=== PATIENT | male | born 1960 | race Caucasian/White ===

== ENCOUNTER 2022-12-18 09:18 | Inpatient (IN) ==
--- NOTE | 2022-12-05 14:13 | PAT Medication Instructions ---
Medication Instructions Date of Service December 05, 2022 Home Medications Medication Instructions Recorded cephalexin 500 mg capsule 500 mg PO BID 7 days #14 caps 10/02/22 amlodipine 10 mg tablet 10 mg PO QAM bupropion HCl 300 mg 24 hr tablet, extended release 300 mg PO QAM buspirone 10 mg tablet 10 mg PO QAM escitalopram oxalate 20 mg tablet 20 mg PO QAM lisinopril 20 mg tablet 20 mg PO QAM trazodone 100 mg tablet 100 mg PO HS cephalexin 500 mg capsule 500 mg PO BID aspirin 81 mg tablet,delayed release 81 mg PO QAM clopidogrel 75 mg tablet 75 mg PO QAM rosuvastatin 20 mg tablet 20 mg PO QAM Continue as directed cephalexin 500 mg capsule 500 mg PO BID ASK your prescriber and surgeon aspirin 81 mg tablet,delayed release 81 mg PO QAM clopidogrel 75 mg tablet 75 mg PO QAM DO NOT take the morning of surgery lisinopril 20 mg tablet 20 mg PO QAM Take morning of surgery With a small sip of water, OTHERWISE NOTHING TO EAT OR DRINK AFTER MIDNIGHT: amlodipine 10 mg tablet 10 mg PO QAM bupropion HCl 300 mg 24 hr tablet, extended release 300 mg PO QAM buspirone 10 mg tablet 10 mg PO QAM escitalopram oxalate 20 mg tablet 20 mg PO QAM rosuvastatin 20 mg tablet 20 mg PO QAM Take evening before surgery trazodone 100 mg tablet 100 mg PO HS Other Notes If you have any questions please call us at [phone] or [phone] or or [phone]
--- NOTE | 2022-12-09 08:24 | Anesthesiology Consultation ---
Date of Service December 09, 2022 Assessment & Plan (1) Encounter for pre-operative examination: Chart Review Chart Review: Acceptable Risk for Surgery and Patient seen in Pre Admission Testing Per PAT appt on 12/09/22, patient denies any recent travel or large group activities. Pt is NOT vaccinated for Covid. Will leave to surgeon's discretion if preop Covid testing needed. Educated on importance of using Covid precautions one week prior to surgery Teaching & Discussion Pre-Anesthesia Teaching/Discussion Notes: Instructed NPO after midnight before surgery,except medications with 15 cc of water. Medication instructions provided according to the PAT guidelines. History Surgery Operation Date: 12/18/22 12:30 Proposed Procedures p Right Transcarotid Artery Revascularization - Rio Alvarez MD Height/Weight Height: 5 ft 7 in Weight: 76.6 kg Allergies Allergy/AdvReac Type Severity Reaction Status Date / Time No Known Allergies Allergy Verified 12/05/22 09:36 Medications Home Medications Medication Instructions Recorded Confirmed Last Taken amlodipine 10 mg tablet 10 mg PO QA 12/23/21 12/05/22 Unknown bupropion HCl 300 mg 24 hr tablet, [address] [facility] 12/23/21 12/05/22 Unknown extended release buspirone 10 mg tablet [address] [facility] 12/23/21 12/05/22 Unknown escitalopram oxalate 20 mg tablet [address] [facility] 12/23/21 12/05/22 Unknown lisinopril 20 mg tablet 20 mg PO QA 12/23/21 12/05/22 Unknown trazodone 100 mg tablet 100 mg PO HS 12/23/21 12/05/22 Unknown cephalexin 500 mg capsule 500 mg PO BID 7 days #14 caps 10/02/22 12/05/22 Unknown aspirin 81 mg tablet,delayed 81 mg PO QA 12/05/22 12/05/22 Unknown release clopidogrel 75 mg tablet 75 mg PO QA 12/05/22 12/05/22 Unknown rosuvastatin 20 mg tablet 20 mg PO QA 12/05/22 12/05/22 Unknown Past Medical History Medical History Alcohol use approximately 5-7 beers per week Carotid artery stenosis High-grade stenosis of greater than 80% involving proximal right internal carotid artery; no significant stenosis or occlusion of left internal carotid artery Chronic back pain Depression Hypertension Insomnia Smokeless tobacco use 1 can per day, started around age 12 Exercise / Class Metabolic Activity II 4-5 Yardwork/Stairs/Walk up hill (one flight of stairs - no chest pain or SOB ) Past Surgical History Surgical History History of back surgery lumbar History of colonoscopy History of tooth extraction S/P appendectomy S/P hernia repair S/P sinus surgery Past Anesthesia History No Hx of Anesthesia Complications and No Family Hx of Anesthesia Complications History of PONV No Hx of PONV and No Hx of Motion Sickness Social History Smoking Status: Never smoker tobacco type: smokeless tobacco Do You Dip or Chew Tobacco: Yes (1 can/day advised npo status) Hx Alcohol Use: Yes Alcohol type: beer alcohol intake frequency: a few times a week Hx Substance Use: No substance use type: does not use Review of Systems Rare reflux - no medication needed Patient denies chest pain, shortness of breath, dyspnea on exertion, cough, wheezing, palpitations. No hx of seizures, stroke, PA, apnea/snoring. No hx of blood clots or blood transfusions Physical Exam Vital Signs VITALS BP 136/82 P 72 TEMP 98.0 SP02 96% RESP 16 Constitutional no acute distress ENMT Mouth: no TMJ clicking Thyromental Distance: < 3.5 Finger Breadths (3.0) Mallampati Class: III Missing teeth Neck + limited neck extension (mild) Respiratory normal respiratory effort; no respiratory distress Auscultation: lungs clear to auscultation bilaterally; no wheezes Cardiovascular Rate/Rhythm: regular rate and regular rhythm Heart Sounds: no murmur Vessels: no carotid bruit Musculoskeletal Spine: no pain with cervical ROM Extremities: extremities normal to inspection Psychiatric Orientation: alert Lab Results Anesthesia Preop Results Results Anesthesia Widget: WBC 7.93 K/ul (4.8-10.8) 12/09/22 Hgb 15.5 g/dl (14.0-18.0) 12/09/22 Hct 43.5 % (40.1-51.0) 12/09/22 Plt 198 K/uL (130-400) 12/09/22 Na 138 mmol/L (136-145) 12/09/22 K 4.1 mmol/L (3.5-5.1) 12/09/22 Cl 105 mmol/L (98-107) 12/09/22 CO2 27 mmol/L (21-32) 12/09/22 BUN 14 mg/dl (6-23) 12/09/22 Creat 1.13 mg/dl (0.6-1.4) 12/09/22 Glucose Level 88 mg/dl (70-99(Fasting)) 12/09/22 PT 10.9 Seconds (9.0-12.0) 12/09/22 PTT 25.0 Seconds (21.0-31.0) 12/09/22 INR 1.0 (0.9-1.1) 12/09/22 Blood Type B Positive 12/09/22 Antibody Screen NEGATIVE 12/09/22 Testing Electrocardiogram Date: 12/09/22 SR with 1st degree AVB at 64bpm Poor R wave progression, consider anterior PA vs lead placement vs LVH (Discussed with Dr. Bermudez. Pt with good functional status, no cardiac symptoms, due to nature of procedure- patient can proceed as scheduled) Chest X-Ray Date: 12/09/22 Findings: + NAD Other Testing Neck CTA 11/17/22= High-grade stenosis of greater than 80% involving the proximal 1 cm of the right internal carotid artery. No significant stenosis or occlusion within the right common carotid artery or left internal carotid artery. Mild stenosis at the takeoff of the left common carotid artery due to the atherosclerotic plaque. COVID-19 Risk Screen Screening Information COVID-19 Screen Date: 12/09/22 Exposure 21 Days Family/Household +COVID Last 21 Days: No Exposure 10 Days Any COVID Exposure Last 10 Days: No Symptoms Last 10 Days Experienced COVID Sx Last 10 Days: No + COVID 0-90 Days COVID + in Last 0-90 Days: No Risk Plan COVID Risk Plan: No Risk Identified Patient Education COVID Preop Screening Education Complete: Yes
--- NOTE | 2022-12-18 08:24 | History & Physical Report ---
Date of Service December 18, 2022 History of Present Illness Primary Care Provider: DIEGO Hugo Name: STEVE ESTRADA Patient Number: [id number] : 1960 Date of Service: 12/04/2022 Chief Complaint: _Follow-up after CTA HPI: _Mr. Estrada is a middle-aged male presents to Dr. Alvarez's vascular surgery clinic today for a follow-up appointment regarding his recent neck CTA and carotid stenosis. He continues to deny any symptoms of cerebrovascular insufficiency, including amaurosis, extremity weakness numbness or tingling, facial droop, sudden onset confusion, other complaints. His neck CTA does confirm about 90% stenosis of his right ICA at the origin. Current Home Meds: (Last Updated 12/04 09:51) amLODIPine (amLODIPine 10 mg oral tablet) 10 mg PO Daily aspirin (aspirin 81 mg oral delayed release tablet) 81 mg PO Daily buPROPion (buPROPion 300 mg/24 hours (XL) oral tablet, extended release) 300 mg PO Daily busPIRone (busPIRone 10 mg oral tablet) 10 mg PO bid celecoxib (celecoxib 100 mg oral capsule) 100 mg PO Daily clopidogrel (Plavix 75 mg oral tablet) 75 mg PO Daily escitalopram (escitalopram 20 mg oral tablet) 20 mg PO Daily lisinopril (lisinopril 20 mg oral tablet) 20 mg PO Daily rosuvastatin (rosuvastatin 20 mg oral tablet) 20 mg PO Daily traZODone (traZODone 100 mg oral tablet) 2 tabs po daily Allergies and Sensitivities: NKA Past Medical History: Problems: Tobacco user Carotid artery stenosis OBJECTIVE Vitals: Last Updated 12/04/22 09:15 Date Temp BP Location Pulse RR SpO2 Pain 12/04/22 136/86 Left Arm 75 98 0 11/03/22 142/84 Left Arm 72 98 Vital Signs are the last 3 documented. No Orthostatic Data Available No Height/Weight Data Available Physical Exam Constitutional: In general patient is a healthy-appearing well-nourished well- developed middle-aged male in no distress. Is alert and oriented without any deficits. His neck does demonstrate a right bruit. His heart is regular, his lungs are clear. His abdomen is soft nontender with normoactive bowel sounds. Brachial radial pulses are +3. Lower extremity exam was deferred by patient. ASSESSMENT: _ PLAN: _ 1 ) _carotid stenosis Patient has severe right ICA stenosis and is currently at risk of having a cerebrovascular event. This was discussed with the patient. Surgical options were then discussed at length, including carotid endarterectomy versus transcarotid artery revascularization. Patient elects to proceed with the TCAR of the right carotid artery. The procedure, risks, benefits and alternatives were discussed at length with the patient by myself at Dr. Alvarez's request. Patient expresses understanding and agreement to proceed. He was in the office with a family member today. All of their questions were answered to their satisfaction. He is not currently taking aspirin or Plavix, so these will be sent to the pharmacy for him. We will also have the patient undergo an echocardiogram prior to his procedure. Patient is agreeable to this plan. Thank you for letting us participate in the care of this patient. Signature Line Electronic Signature on File CC: DIEGO Craig [address],[facility] [address] [place] [address] * Electronically Reviewed/Signed by: Deja Armas PA-C Author Signature Dt/Tm:12/04/2022 09:58 AM [facility] [address] [address] Electronically Reviewed/Signed by: MD Kym Aguiarignkailey Signature Dt/Tm: 12/04/2022 11:41 AM [employer] And Sustainability Manager [place] [id number] LM Result Type: HVI Outpt Note Date of Service: December 04, 2022 09:53 EST Authorization Status: Final Author or Import Date: LAURA Armas Lynn on December 04, 2022 09:58 EST Verified By: MD Alvarez Eugene J on December 04, 2022 11:41 EST Encounter info: [id number], [facility] [place], Clinic, 12/04/2022 - 12/04/2022 Allergies Allergy/AdvReac Type Severity Reaction Status Date / Time No Known Allergies Allergy Verified 12/05/22 09:36 Home Medications Medication Instructions Recorded Confirmed Type amlodipine 10 mg tablet 10 mg PO QAM 12/23/21 12/05/22 History bupropion HCl 300 mg 24 hr tablet, 300 mg PO QAM 12/23/21 12/05/22 History extended release buspirone 10 mg tablet 10 mg PO QAM 12/23/21 12/05/22 History escitalopram oxalate 20 mg tablet 20 mg PO QAM 12/23/21 12/05/22 History lisinopril 20 mg tablet 20 mg PO QAM 12/23/21 12/05/22 History trazodone 100 mg tablet 100 mg PO HS 12/23/21 12/05/22 History cephalexin 500 mg capsule 500 mg PO BID 7 days #14 caps 10/02/22 12/05/22 Rx aspirin 81 mg tablet,delayed 81 mg PO QA 12/05/22 12/05/22 History release clopidogrel 75 mg tablet 75 mg PO QA 12/05/22 12/05/22 History rosuvastatin 20 mg tablet 20 mg PO QA 12/05/22 12/05/22 History Past Med/Surg History Medical History Alcohol use approximately 5-7 beers per week Carotid artery stenosis High-grade stenosis of greater than 80% involving proximal right internal carotid artery; no significant stenosis or occlusion of left internal carotid artery Chronic back pain Depression Hypertension Insomnia Smokeless tobacco use 1 can per day, started around age 12 Surgical History History of back surgery lumbar History of colonoscopy History of tooth extraction S/P appendectomy S/P hernia repair S/P sinus surgery Social History Smoking Status: Never smoker Second Hand Exposure: No; Hx Alcohol Use: Yes Alcohol type: beer Alcohol Intake Frequency: 2-3 x/Week Hx Substance Use: No Preferred Language: Ghanaian Communication Ability: Effective Hearing Ability: Normal Stamp Redemption Clerk Required: No Beliefs That Will Affect Care: None marital status: Single Current Living Situation: Alone Current Living Situation Comment: Dog current occupational status: unemployed Feels Safe at Home: Yes Dental Care, Regularly: Yes Assistive Devices: Glasses
[~2022-12-18 09:18] MED LIST: SODIUM CHLORIDE 0.9% 1000ML 1,000 ML IV SCH; ceFAZolin 2000MG 2,000 MG/15 ML SYR IV SCH
[2022-12-18] MEDS ORDERED: MIDAZOLAM HCL 1 MG/ML 2ML VIAL ONE (09:26)
[2022-12-18] MEDS ORDERED: fentaNYL citrate 100 MCG/2 ML VIAL ONE ×2 (09:27→12:31)
[2022-12-18 10:37] LABS: BUN Creatinine Ratio 10.1 (10-20); Calcium 9.6 mg/dl (8.5-10.1); Creatinine Clr Calc Pharmacy 65.7 ml/min; Est GFR (African American) 83.9 ml/min; Est GFR (Non-African American) 72.4 ml/min
[2022-12-18] MEDS ORDERED: fentaNYL citrate 100 MCG/2 ML VIAL IV PRN (11:14)
[2022-12-18] MEDS ORDERED: PROMETHAZINE HCL 6.25 MG in SODIUM CHLORIDE 0.9% 50 ML IV PRN (11:14)
[2022-12-18] MEDS ORDERED: LABETALOL HCL IV 5 MG/ML 20ML IV PRN ×2 (11:14→17:42)
[2022-12-18] MEDS ORDERED: ATROPINE SULFATE 0.1 MG/ML 10ML SYR IV PRN (11:14)
[2022-12-18] MEDS ORDERED: ONDANSETRON INJ 2 MG/ML 2 ML VIAL IV PRN ×2 (11:14→16:46)
[2022-12-18] MEDS ORDERED: KETOROLAC 30 MG/ML VIAL IV PRN (11:14)
[2022-12-18] MEDS ORDERED: ONDANSETRON INJ 2 MG/ML 2 ML VIAL ONE (11:43)
[2022-12-18] MEDS ORDERED: LIDOCAINE 2% MPF LOCAL 5 ML VIAL INFIL ONE (11:43)
[2022-12-18] MEDS ORDERED: HEPARIN SOD (PORCINE) 1000 UNIT/ML ONE (11:43)
[2022-12-18] MEDS ORDERED: PHENYLEPHRINE HCL 10 MG/ML VIAL ONE (11:43)
[2022-12-18] MEDS ORDERED: ROCURONIUM BROMIDE 10 MG/ML 5 ML VIAL IV ONE (11:43)
[2022-12-18] MEDS ORDERED: PROPOFOL IV EMULSION 10 MG/ML 20 ML VIAL IV ONE (11:43)
[2022-12-18] MEDS ORDERED: DEXAMETHASONE SOD INJ 4 MG/ML VIAL ONE (11:43)
--- NOTE | 2022-12-18 11:47 | History & Physical Bridge Note ---
Date of Service December 18, 2022 History & Physical Bridge Note I have examined the patient, reviewed the History & Physical and in the interval since the performance of the History & Physical I have noted the following changes of clinical significance: no changes noted
[2022-12-18] MEDS ORDERED: THROMBIN FOR SOLN 20000 UNIT KIT ONE (11:49)
[2022-12-18] MEDS ORDERED: GELATIN SPONGE SZ 100 ONE (11:49)
[2022-12-18] MEDS ORDERED: NITROGLYCERIN 5 MG/ML 10 ML VIAL ONE (12:43)
[2022-12-18] MEDS ORDERED: VISIPAQUE IV ONE (12:53)
[2022-12-18] MEDS ORDERED: PROTAMINE SULFATE 10 MG/ML 5 ML VIAL IV ONE (13:30)
[2022-12-18] MEDS ORDERED: NEOSTIGMINE METHYLSULFATE 1 MG/ML 10ML VIAL ONE (13:36)
[2022-12-18] MEDS ORDERED: GLYCOPYRROLATE 0.2 MG/ML VIAL ONE ×2 (13:36→13:37)
[2022-12-18] MEDS ORDERED: ePHEDrine sulfate 50 MG/ML AMP ONE ×2 (13:37→13:46)
[2022-12-18] MEDS ORDERED: LARYING-O-JET KIT (LTA) ONE (13:40)
--- NOTE | 2022-12-18 13:49 | Post Operative Brief Note ---
Immediate Post Op Note v1 Date of Surgery December 18, 2022 Pre & Post Diagnosis Operation Date: 12/18/22 11:30 Pre-Op Diagnosis: Right Internal Carotid Artery Stenosis Post-Op Diagnosis: Right Internal Carotid Artery Stenosis I identified the patient and participated in the time-out.: Yes Procedure Operation Date: 12/18/22 11:30 Actual Procedures p Right Transcarotid Artery Revascularization(Right) - Rio Alvarez MD ultrasound loclaization of left femoral vein Surgeon Rio Alvarez MD Physiotherapy Practice Manager MD Tosin Estimated Blood Loss 20 Findings Consistent with Post-Op Diagnosis Anesthesia Type General Complications none Disposition Accompanied Patient To Recovery: No Disposition: Recovery Room
--- NOTE | 2022-12-18 14:05 | Operative Report ---
Post Operative Report Pre & Post Diagnosis Operation Date: 12/18/22 11:30 Pre-Op Diagnosis: Right Internal Carotid Artery Stenosis Post-Op Diagnosis: Right Internal Carotid Artery Stenosis I identified the patient and participated in the time-out.: Yes Procedure Operation Date: 12/18/22 11:30 Actual Procedures p Right Transcarotid Artery Revascularization(Right) - Rio Alvarez MD Surgeon Rio Alvarez MD Bankruptcy Legal Assistant Jorge Mackenzie MD Estimated Blood Loss 20 Findings Consistent with Post-Op Diagnosis Nearly occlusive plaque at right internal carotid artery origin. Flow reversal achieved prior to engagement of right internal carotid artery lesion. Pre- dilation with 5mm balloon with improvement in stenosis. Successful deployment of 10mm right internal carotid artery stent across lesion with <50% residual stenosis on carotid completion angiogram. Specimens None Drains None Anesthesia Type General Complications None Indications Severe >80% stenosis of the right internal carotid artery, asymptomatic Description of Procedure The patient was taken to the operating room and placed in supine position. After general anesthesia was accomplished the right-side of the neck and left groin were prepped and draped in a sterile manner. A transverse 4cm incision was made on the right neck over the sternal and clavicular heads of the sternocleidomastoid muscle and below the omohyoid. Subcutaneous tissue and platysma were divided using electrocautery. The subclavian vein was encountered deep to this and gently retracted laterally. Dissection using Metzenbaum scissors proceeded and the carotid sheath was identified medially. It was divided longitudinally. The internal jugular was retracted medially. The common carotid artery was identified with the Vagus nerve posterolateral. The common carotid artery was mobilized with Metzenbaum scissors and umbilical tape was placed around the artery. Once sufficient length, about 2cm of the common carotid were mobilized, a 5-0 Proline suture was used to place a U-Stitch in the anterior surface of the right common carotid artery. 8000U of heparin was then given to obtain an ACT > 250. A micropuncture needle was used to access the common carotid artery in the center of the U-stitch. The micropuncture wire was then advance 4cm into the common carotid artery and the micropuncture needle was removed. The micropuncture sheath was advanced 2-3cm into the common carotid artery and the wire and dilator were removed. Next a 0.035'' J guidewire was was inserted and placed just proximal to the right internal carotid artery lesion without engaging the lesion. The micropuncture sheath was exchanged over the guidewire and the Transcarotid Arterial Sheath was advanced to the 2.5cm marker in correct coaxial orientation and the J wire and dilator were removed. The Sheath was sutured to the patient and then flushed with heparinized saline. No air bubbles visualized during flushing Attention was turned to the left common femoral vein which was then accessed under ultrasound guidance using a micropuncture needle. This was exchanged for the Venous Return Sheath over the provided 0.035'' wire. Blood was aspirated from the flow line followed by flushing of the venous sheath with heparinized saline. The sheath was sutured in place to the patient's skin. The flow controller was connected to the Transcarotid arterial sheath. Arterial blood was allowed to passively fill the device completely to which it was then connected to the Venous return sheath. The flow controller was set to high. The common carotid artery proximal to the access point was then clamped with an angled DeBakey and flow reversal was confirmed. A right carotid angiogram was then performed and the right internal carotid artery lesion was marked. HR and systolic blood pressures were adequate with HR of about 80 and blood pressure between 140 and 160 systolic. The lesion was then crossed using a 0.014'' guidewire. The lesion was then pre-dilated using a 5mm x 20mm balloon. This balloon was then exchanged and primary stenting was performed with the Transcarotid stent, appropriately sized (10mm). Post dilation was performed with a 5x20mm balloon to 14 ATMs. Completion carotid angiography demonstrated patent stent with <50% residual stenosis Antegrade flow was restored following release of the common carotid artery clamp. The arterial sheath was removed and U-Stitch tied. The femoral venous sheath was removed and pressure held for 5 min with adequate hemostasis. Adequate hemostasis was seen of the carotid artery. The wound was inspected and adequate hemostasis was obtained. It was then closed with a running 3-0 Vicryl suture for the platysmal layer and a 4-0 subcuticular Vicryl suture for the skin edges. Dermabond was used for dressing. Patient awoke from anesthesia without difficulties. There was a small hematoma noted in the left groin, non- pulsatile. Was neurovascularly intact, moving all extremities and following commands at case completion. The patient left the operating room in satisfactory condition and tolerated the procedure well A total of 43mGy, 4.1 min of fluoroscopy time, and 10cc of contrast were used during the procedure. I attest to the content of the Intraoperative Record and any orders documented therein. Any exceptions are noted below. Supervising Physician Co-Signing Physician Notes Rio Alvarez MD
--- NOTE | 2022-12-18 14:51 | Anesthesiology Progress Note ---
Date of Service December 18, 2022 Anesthesia Post Procedure Vital Signs Vital Signs: Temp Pulse Pulse Resp BP BP BP 12/18/22 14:30 64 16 160/73 H 148/82 H 12/18/22 14:40 63 14 160/74 H 144/81 H 12/18/22 14:20 72 20 167/80 H 153/89 H 12/18/22 14:11 36.0 C L 68 16 147/85 H 12/18/22 09:55 36.8 C 66 18 163/96 H 148/88 H 12/18/22 09:55 Pulse Ox O2 Del Method O2 Flow Rate 12/18/22 14:30 99 Oxymask 3 12/18/22 14:40 96 Room Air 12/18/22 14:20 100 Oxymask 6 12/18/22 14:11 99 Oxymask 6 12/18/22 09:55 96 Room Air 12/18/22 09:55 Room Air Transfer of Care Handoff Completed per policy Notes Mental Status: alert / awake / arousable Patient Amnestic to Procedure: Yes Nausea / Vomiting: adequately controlled Pain: adequately controlled Airway Patency, RR, SpO2: stable & adequate BP & HR: stable & adequate Hydration State: stable & adequate Anesthetic Complications: no major complications apparent
[2022-12-18] MEDS ORDERED: oxyCODONE/ACETAMINOPHEN 5mg/325mg TAB PO PRN (16:46)
[2022-12-18] MEDS ORDERED: LACTATED RINGER'S 1,000 ML IV SCH (16:46)
--- NOTE | 2022-12-18 17:14 | Critical Care Consultation ---
Date of Consultation December 18, 2022 Assessment & Plan (1) Carotid artery stenosis: Pt is a 62 yo male with PMH of right carotid artery stenosis, chronic lower back pain s/p surgical intervention, HTN, depression/anxiety, and tobacco use presenting to the hospital for a TCAR procedure. Reason critically ill: s/p TCAR Right carotid artery stenosis s/p TCAR - surgery w/o immediate complications - percocet ordered for pain - monitor for post op complications HTN - post op plan to keep SBP < 160 - IV labetalol 5 mg PRN - will resume PO home medications tomorrow AM Fluids: LR at 125 mL/hr DVT ppx: SCDs Code: full Dispo: plan for d/c tomorrow (2) Encounter for postoperative care: (3) Chronic back pain: (4) Hypertension: Supervising Physician Co-Signing Physician Notes Dr. Noel was resident physician during care of patient. I separately evaluated patient for chaudhary portions of the history and the exam. I was present during the critical portion of medical decision making, and I discussed the case with the resident. I generally agree with the findings and plan. History of Present Illness Reason for Consultation: s/p TCAR Requesting Physician: Rio Alvarez MD Attending Physician: Rio Alvarez MD History of Present Illness Pt is a 62 yo male with PMH of right carotid artery stenosis, chronic lower back pain s/p surgical intervention, HTN, depression/anxiety, and tobacco use presenting to the hospital for a TCAR procedure. Pt seen at bedside w/ friend in the room while eating his dinner. Pt endorses mild pain at the surgical site. Overall, he states he feels well. He denies any new symptoms of chest pain, SOB, or leg pains. Medical and surgical hx reviewed. No allergies that the pt is aware of. Allergies Allergy/AdvReac Type Severity Reaction Status Date / Time No Known Allergies Allergy Verified 12/18/22 09:45 Home Medications Medication Instructions Recorded Confirmed Type amlodipine 10 mg tablet 10 mg PO QAM 12/23/21 12/18/22 History bupropion HCl 300 mg 24 hr tablet, 300 mg PO QAM 12/23/21 12/18/22 History extended release buspirone 10 mg tablet 10 mg PO QAM 12/23/21 12/18/22 History escitalopram oxalate 20 mg tablet 20 mg PO QAM 12/23/21 12/18/22 History lisinopril 20 mg tablet 20 mg PO QAM 12/23/21 12/18/22 History trazodone 100 mg tablet 100 mg PO HS 12/23/21 12/18/22 History cephalexin 500 mg capsule 500 mg PO BID 7 days #14 caps 10/02/22 12/18/22 Rx aspirin 81 mg tablet,delayed 81 mg PO QAM 12/05/22 12/18/22 History release clopidogrel 75 mg tablet 75 mg PO QAM 12/05/22 12/18/22 History rosuvastatin 20 mg tablet 20 mg PO QAM 12/05/22 12/18/22 History oxycodone-acetaminophen 5 mg-325 1 - 2 tab PO Q6H PRN pain #15 tabs 12/19/22 Rx mg tablet (Percocet) Patient History Medical History Alcohol use approximately 5-7 beers per week Carotid artery stenosis High-grade stenosis of greater than 80% involving proximal right internal carotid artery; no significant stenosis or occlusion of left internal carotid artery Chronic back pain Depression Hypertension Insomnia Internal carotid artery stent present Smokeless tobacco use 1 can per day, started around age 12 Surgical History History of back surgery lumbar History of colonoscopy History of tooth extraction S/P appendectomy S/P hernia repair S/P sinus surgery Social History Smoking Status: Never smoker Second Hand Exposure: No; Hx Alcohol Use: Yes Alcohol type: beer Alcohol Intake Frequency: 2-3 x/Week Hx Substance Use: No Preferred Language: Polish Communication Ability: Effective Hearing Ability: Normal Gunner'S Mate Required: No Beliefs That Will Affect Care: None marital status: Single Current Living Situation: Alone Current Living Situation Comment: Dog current occupational status: unemployed Feels Safe at Home: Yes Dental Care, Regularly: Yes Assistive Devices: Glasses Review of Systems Review of Systems: All systems reviewed & are unremarkable except as noted in HPI & below Physical Exam Constitutional: NAD. Vitals WNL. Neck: No thyromegaly. Trachea midline. Surgical scar intact w/o bleeding or discharge. Respiratory: CTA bilaterally. No rhonchi, wheezing, or crackles. Non labored breathing. Cardiovascular: RRR. No murmur noted. No LE edema. Psychiatric: Alert and oriented. Mood and affect congruent. Results & Data Results & Data ([facility]) Vital Signs (Past 12 Hours) Vital Signs Temp Pulse Pulse Pulse Resp BP BP 12/18/22 16:30 74 18 12/18/22 16:15 66 16 12/18/22 16:03 60 16 145/80 H 12/18/22 16:55 74 17 12/18/22 16:50 86 19 12/18/22 16:45 77 20 12/18/22 16:03 36.7 C 12/18/22 15:44 76 18 12/18/22 15:30 62 17 12/18/22 15:15 63 15 12/18/22 15:05 65 15 12/18/22 15:00 63 14 12/18/22 14:30 64 16 12/18/22 14:50 36.4 C L 62 16 12/18/22 14:40 63 14 12/18/22 14:20 72 20 12/18/22 14:11 36.0 C L 68 16 12/18/22 09:55 36.8 C 66 18 163/96 H 12/18/22 09:55 BP BP Pulse Ox O2 Del Method O2 Flow Rate 12/18/22 16:30 97 Room Air 12/18/22 16:15 96 12/18/22 16:03 95 Room Air 12/18/22 16:55 96 Room Air 12/18/22 16:50 96 12/18/22 16:45 98 12/18/22 16:03 12/18/22 15:44 166/78 H 154/90 H 95 Room Air 12/18/22 15:30 163/75 H 145/83 H 96 Room Air 12/18/22 15:15 166/76 H 146/80 H 96 Room Air 12/18/22 15:05 162/78 H 140/77 96 Room Air 12/18/22 15:00 165/74 H 149/75 H 97 Room Air 12/18/22 14:30 160/73 H 148/82 H 99 Oxymask 3 12/18/22 14:50 162/74 H 133/74 96 Room Air 12/18/22 14:40 160/74 H 144/81 H 96 Room Air 12/18/22 14:20 167/80 H 153/89 H 100 Oxymask 6 12/18/22 14:11 147/85 H 99 Oxymask 6 12/18/22 09:55 148/88 H 96 Room Air 12/18/22 09:55 Room Air Resident Activity Tracking Resident Involvement: Resident Care Provided Care Provided: Adult [facility] Medicine
[2022-12-18] MEDS ORDERED: traZODone HCL 100 MG TAB PO SCH (21:00)
[2022-12-18] MEDS: ceFAZolin 2000MG 2,000 MG/15 ML SYR IV SCH (21:20)
[2022-12-19] MEDS: ceFAZolin 2000MG 2,000 MG/15 ML SYR IV SCH (04:16)
[2022-12-19] MEDS ORDERED: buPROPion XL 300 MG TABCR PO SCH (09:00)
[2022-12-19] MEDS ORDERED: ASPIRIN 81 MG ECTAB PO SCH (09:00)
[2022-12-19] MEDS ORDERED: busPIRone 5 MG TAB PO SCH (09:00)
[2022-12-19] MEDS ORDERED: lisinopril 20 MG TAB PO SCH (09:00)
[2022-12-19] MEDS ORDERED: ESCITALOPRAM OXALATE 20 MG TAB PO SCH (09:00)
[2022-12-19] MEDS ORDERED: CLOPIDOGREL BISULFATE 75 MG TAB PO SCH (09:00)
[2022-12-19] MEDS ORDERED: ROSUVASTATIN CALCIUM 20 MG TAB PO SCH (09:00)
[2022-12-19] MEDS ORDERED: amLODIPine BESYLATE 5 MG TAB PO SCH (09:00)
--- NOTE | 2022-12-19 09:00 | Surgery Progress Note ---
Date of Service December 19, 2022 Assessment & Plan (1) Internal carotid artery stent present: Plan: Pt is POD #1 after uncomplicated R TCAR procedure. Doing well post op. Discussed with Dr Alvarez. WIll d/c home today. Admission and Anticipated Discharge Date Admission Date: December 18, 2022 Subjective 62 yo m POD #1 after R TCAR, seen in f/u today. Pt states overall just feeling a little tired and has a sore throat. Denies MARLEY, amaurosis, ext numbness/weakness, difficulty speaking, dizziness. Taking PO well. Review of Systems Review of Systems: All systems reviewed & are unremarkable except as noted in HPI & below Physical Exam Constitutional: WD/WN, vitals as above Neck: trachea midline R neck incision C/D/I, minimally tender. No erythema Respiratory: normal respiratory effort, lungs clear to auscultation Auscultation: + diminished lung sounds Cardiovascular: Rate/Rhythm: regular rate and regular rhythm Vessels: femoral pulses present, posterior tibial pulses present and dorsalis pedis pulses present; + abnormal peripheral pulses Extremities: normal capillary refill L femoral vein access site C/D/I Gastrointestinal (Abdomen): Inspection/Auscultation: abdomen normal to inspection and normal bowel sounds Percussion/Palpation: abdomen soft; abdomen nontender Musculoskeletal: no cyanosis or clubbing, extremities motor strength 5/5 Skin: no rashes, warm and dry Neurologic: moves all extremities and awake; no focal motor deficits and not confused Psychiatric: A+Ox3, euthymic affect Results & Data ([facility]) Vital Signs (Past 12 Hours) Vital Signs Temp Pulse Resp BP Pulse Ox 12/19/22 08:00 63 12/19/22 06:00 70 22 105/69 97 12/19/22 05:00 58 L 16 97 12/19/22 04:00 72 17 129/73 95 12/19/22 03:00 61 15 140/66 96 12/19/22 02:00 58 L 12 111/61 96 12/19/22 01:00 61 14 110/65 95 12/19/22 00:00 69 17 126/68 96 12/18/22 23:00 64 15 125/73 95 12/18/22 22:00 60 17 147/88 H 97 12/18/22 23:40 36.5 C 12/18/22 23:23 61 12/18/22 21:00 70 24 138/92 96
--- NOTE | 2022-12-19 09:01 | Discharge Summary ---
Date of Service December 19, 2022 Admission HPI Per Admitting Provider Name: STEVE ESTRADA Patient Number: [id number] : 1960 Date of Service: 12/04/2022 Chief Complaint: _Follow-up after CTA HPI: _Mr. Estrada is a middle-aged male presents to Dr. Cramer's vascular surgery clinic today for a follow-up appointment regarding his recent neck CTA and carotid stenosis. He continues to deny any symptoms of cerebrovascular insufficiency, including amaurosis, extremity weakness numbness or tingling, facial droop, sudden onset confusion, other complaints. His neck CTA does confirm about 90% stenosis of his right ICA at the origin. Current Home Meds: (Last Updated 12/04 09:51) amLODIPine (amLODIPine 10 mg oral tablet) 10 mg PO Daily aspirin (aspirin 81 mg oral delayed release tablet) 81 mg PO Daily buPROPion (buPROPion 300 mg/24 hours (XL) oral tablet, extended release) 300 mg PO Daily busPIRone (busPIRone 10 mg oral tablet) 10 mg PO bid celecoxib (celecoxib 100 mg oral capsule) 100 mg PO Daily clopidogrel (Plavix 75 mg oral tablet) 75 mg PO Daily escitalopram (escitalopram 20 mg oral tablet) 20 mg PO Daily lisinopril (lisinopril 20 mg oral tablet) 20 mg PO Daily rosuvastatin (rosuvastatin 20 mg oral tablet) 20 mg PO Daily traZODone (traZODone 100 mg oral tablet) 2 tabs po daily Allergies and Sensitivities: NKA Past Medical History: Problems: Tobacco user Carotid artery stenosis OBJECTIVE Vitals: Last Updated 12/04/22 09:15 Date Temp BP Location Pulse RR SpO2 Pain 12/04/22 136/86 Left Arm 75 98 0 11/03/22 142/84 Left Arm 72 98 Vital Signs are the last 3 documented. No Orthostatic Data Available No Height/Weight Data Available Physical Exam Constitutional: In general patient is a healthy-appearing well-nourished well-d eveloped middle-aged male in no distress. Is alert and oriented without any deficits. His neck does demonstrate a right bruit. His heart is regular, his lungs are clear. His abdomen is soft nontender with normoactive bowel sounds. Brachial radial pulses are +3. Lower extremity exam was deferred by patient. ASSESSMENT: _ PLAN: _ 1 ) _carotid stenosis Patient has severe right ICA stenosis and is currently at risk of having a cerebrovascular event. This was discussed with the patient. Surgical options were then discussed at length, including carotid endarterectomy versus ruiz scarotid artery revascularization. Patient elects to proceed with the TCAR of the right carotid artery. The procedure, risks, benefits and alternatives were discussed at length with the patient by myself at Dr. Cramer's request. Patient expresses understanding and agreement to proceed. He was in the office with a family member today. All of their questions were answered to their satisfaction. He is not currently taking aspirin or Plavix, so these will be sent to the pharmacy for him. We will also have the patient undergo an echocardiogram prior to his procedure. Patient is agreeable to this plan. Thank you for letting us participate in the care of this patient. Signature Line Electronic Signature on File CC: DIEGO Craig [address],[facility] [address] [place] [id number] * Electronically Reviewed/Signed by: Deja Armas PA-C Author Signature Dt/Tm:12/04/2022 09:58 AM [facility] [address] [place] [address] Electronically Reviewed/Signed by: MD Joaquim Aguiar Signature Dt/Tm: 12/04/2022 11:41 AM [facility] [place] [id number] LM Result Type: HVI Outpt Note Date of Service: December 04, 2022 09:53 EST Authorization Status: Final Author or Import Date: LAURA Armas Lynn on December 04, 2022 09:58 EST Verified By: MD Cramer Eugene J on December 04, 2022 11:41 EST Encounter info: [id number], [facility], Clinic, 12/04/2022 - 12/04/2022 Admission Exam Per Admitting Provider Constitutional: In general patient is a healthy-appearing well-nourished well- developed middle-aged male in no distress. Is alert and oriented without any deficits. His neck does demonstrate a right bruit. His heart is regular, his lungs are clear. His abdomen is soft nontender with normoactive bowel sounds. Brachial radial pulses are +3. Lower extremity exam was deferred by patient. Principal Diagnosis 1. s/p R TCAR 2. R ICA stenosis Discharge Exam Constitutional WD/WN, vitals as above Neck trachea midline Respiratory normal respiratory effort, lungs clear to auscultation Auscultation: + diminished lung sounds Cardiovascular Rate/Rhythm: regular rate and regular rhythm Vessels: femoral pulses present, posterior tibial pulses present and dorsalis pedis pulses present; + abnormal peripheral pulses Extremities: normal capillary refill Gastrointestinal (Abdomen) Inspection/Auscultation: abdomen normal to inspection and normal bowel sounds Percussion/Palpation: abdomen soft; abdomen nontender Musculoskeletal no cyanosis or clubbing, extremities motor strength 5/5 Skin no rashes, warm and dry Neurologic moves all extremities and awake; no focal motor deficits and not confused Psychiatric A+Ox3, euthymic affect Discharge Data Allergies Allergy/AdvReac Type Severity Reaction Status Date / Time No Known Allergies Allergy Verified 12/18/22 09:45 Consultations 12/18/22 16:46 Consult Mechanical Maintenance Engineer Routine Procedures Performed Operation Date: 12/18/22 11:30 Actual Procedures p Right Transcarotid Artery Revascularization(Right) - Rio Cramer MD Ordered Studies 12/18/22 07:52 EV angio carotid cerv RT Routine Hospital Course (1) Internal carotid artery stent present: Pt is POD #1 after uncomplicated R TCAR procedure. Doing well post op. Discussed with Dr Cramer. WIll d/c home today. Total Time Total Time Spent Total Time Spent (In Minutes): 0 Discharge Plan Discharge Items Patient Disposition: Home - Self-Care Reason For Visit: Right Internal Carotid Artery Stenosis Discharge Diagnosis: 1. s/p Right Transcarotid Artery Revascularization 2. R ICA stenosis Condition on Discharge: Good Activity: Per Instructions section Non-emergency contact: Primary Care Provider and Surgeon Call non-emergency contact if: you have any medication questions, your pain is not controlled, your pain is concerning for you, you have a fever, your wound has increased redness and your wound has increased drainage Follow-up/Referrals: José Manuel Proctor CRNP [Primary Care Provider] - (Follow up with your PCP within 2 weeks) Rio Cramer MD [Physician] - (Follow up with Dr Cramer or Deja Armas PA-C within 2 weeks.) Diet: Heart Healthy Add Attending Provider Instructions: SPECIAL CARE INSTRUCTIONS: Medications: * Continue to take Aspirin, plavix, and statin medication as directed. DO NOT STOP THESE MEDICATIONS WITHOUT SPEAKING TO DR CRAMER'S OFFICE. Incision Care: * You may shower, but do not rub incision. You may let the warm soapy water run over it. Be sure to dry the incision well after bathing. * Do not shave directly over the incision until it is healed. * DO NOT IMMERSE THE INCISION IN A TUB/POOL/etc. UNTIL HEALED. Restrictions: * Do not drive for at least one week or if you are still taking any narcotic pain medication. * Do not lift anything heavier than a gallon of milk for one week after going home. Possible Complications: * Numbness - It is normal to have some numbness around the incision. Numbness can extend beyond the incision to areas of the neck, ear and face. The numbness is due to bruising of nerves during the surgery and will gradually improve over a period of months. * Hoarseness/Difficulty Speaking and Swallowing - The bruising of nerves in the neck can also cause a hoarse voice, difficulty speaking or swallowing. This may improve over time, HOWEVER, if it continues for more than a few days please contact our office ([phone]). * Excessive Swelling - There will be some swelling immediately after surgery which usually resolves within one week. If you notice that the swelling is getting worse, notify your surgeon ([phone]). * Drainage/Bleeding - If there is any drainage or bleeding, it should be a very small amount (less than a teaspoon per day). If you have excessive bleeding or drainage from the incision, call your surgeon ([phone]) right away. ACTIVATION OF EMERGENCY MEDICAL SYSTEM: Call 911, immediately, if you experience any of the following: Warning Signs and Symptoms of Stroke: * Sudden numbness or weakness of the face, arm or leg, especially on one side of the body * Sudden confusion, trouble speaking or understanding * Sudden trouble seeing in one or both eyes * Sudden trouble walking, dizziness, loss of balance or coordination * Sudden severe headache with no cause Do not delay calling 911 if you experience any warning signs or symptoms of a stroke. Delay in seeking medical attention may affect what treatments can be given to you. Risk Factors for Stroke: You can reduce your chances of stroke by working with your medical provider to adopt a healthy lifestyle. Some specific ways to lower your chance of stroke are: * If you are a smoker, now is the time to stop smoking cigarettes * If you are diabetic, improve the control of your blood sugars * Avoid excessive amounts of alcohol * Control high blood pressure * Lose weight if you are overweight * Be sure to lead an active lifestyle * Eat a healthy diet low in salt, cholesterol and fat You should know about other risk factors for stroke that you are unable to control. These include: * Age 55 years or older * Male gender * Certain racial groups: , or / * Family History of Stroke, Mini stroke or Heart Attack * Sickle Cell Disease You will be receiving a call from the Vascular Surgery Nurse after you are discharged. FOLLOW UP VISIT: It is important for you to keep your follow up appointments with your medical provider. Keep any scheduled doctor appointments. Pending Studies at Discharge: No Stand-Alone Forms: [facility], Smoking Cessation Medications and DC Order Prescriptions: New oxycodone-acetaminophen [Percocet] 5-325 mg Tablet 1 - 2 tab PO Q6H PRN (Reason: pain) Qty: 15 0RF Continued cephalexin 500 mg capsule 500 mg PO BID 7 Days Qty: 14 0RF trazodone 100 mg tablet 100 mg PO HS escitalopram oxalate 20 mg tablet 20 mg PO QAM buspirone 10 mg tablet 10 mg PO QAM bupropion HCl 300 mg tablet extended release 24 hr 300 mg PO QAM amlodipine 10 mg tablet 10 mg PO QAM lisinopril 20 mg tablet 20 mg PO QAM clopidogrel 75 mg Tablet 75 mg PO QAM aspirin 81 mg tablet,delayed release (DR/EC) 81 mg PO QAM rosuvastatin 20 mg tablet 20 mg PO QAM Discharge Orders: Discharge Order (Routine); Ordered 12/19/22 Ordered By: Deja Armas Admission Data Admit Date/Time: 12/18/22 11:47 Attending Provider: Rio Cramer Admit Provider: Rio Cramer Primary Care Provider: José Manuel Proctor Other Providers: William Valle ; Mendoza Reid ; Abdi Pretty ; Timothy Sylvester ; Elvis Le ; Andrey Nelson ; Radha Boyce ; Roger Scherer ; Muna Barton
== END 2022-12-19 10:19 | disposition home or self-care (01) | DRG 36 ==
LOC: ASU 09:18 → 1E 11:47
PROC: EV.TCAR (2022-12-18 11:30)